=== PATIENT | male | born 1980 | race Caucasian/White ===

== ENCOUNTER 2018-09-03 13:59 | Observation (INO) | payer OTHER, MEDICAID ==
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
[2018-09-03] MEDS ORDERED: Sodium Chloride 0.9% 10 ML Syringe FLUSH PRN (18:43)
[2018-09-03] MEDS ORDERED: Ondansetron 4 MG/2 ML SDV IV PRN (18:43)
[2018-09-03] MEDS ORDERED: Acetaminophen 325 MG Tab PO PRN (18:43)
[2018-09-03] MEDS ORDERED: oxyCODONE 5 MG Tab PO PRN (18:43)
[2018-09-03] MEDS: Ibuprofen 600 MG Tab PO PRN (19:10)
--- NOTE | 2018-09-03 19:27 | PCM.SN ---
- Free Text/Narrative Note: time: 19:20 Call from [address] [place] [address]. Mr. Barreto is requesting no IV/Saline lock, "he doesn't like needles" O: vital signs: T 37.4 P 116 RR 16 B/P 132/89 A: declines IV access P: advise Mr. Barreto if he has any changes in vital signs or worsen symptoms, He will need to have IV access. Mr. Barreto agrees with plan of care.
[2018-09-03] MEDS ORDERED: Bacitracin Oint 28.35 GM Tube TOP PRN (21:44)
[2018-09-04] MEDS: Ibuprofen 600 MG Tab PO PRN (08:58)
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
== END 2018-09-04 09:50 | disposition home or self-care (01) ==
LOC: JP.ED 13:59 → JP.MS 17:45
PROVIDERS: ADMIT Hospitalist; ATTEND Hospitalist
DX: S06.0X9A Concussion with loss of consciousness of unspecified duration, initial encounter (principal); F17.200 Nicotine dependence, unspecified, uncomplicated; F41.9 Anxiety disorder, unspecified; F32.9 Major depressive disorder, single episode, unspecified; V89.2XXA Person injured in unspecified motor-vehicle accident, traffic, initial encounter
CPT/HCPCS: 70450; 72125; 73630; 99284; A9270; G0378

== ENCOUNTER 2018-09-05 18:46 | Emergency (ER) | payer OTHER, MEDICAID ==
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
== END 2018-09-05 20:47 | disposition home or self-care (01) ==
LOC: JP.ED 18:46
DX: T14.8XXA Other injury of unspecified body region, initial encounter (principal); X58.XXXA Exposure to other specified factors, initial encounter
CPT/HCPCS: 99283